=== PATIENT | male | born 1960 | race Caucasian/White ===

== ENCOUNTER → 2020-11-16 | Outpatient (CLI) | payer OTHER ==
[~2020-11-16] MED LIST: ACET325 PO; ASPI81CH; ASPI81CH PO; ATOR80 PO; CLOP75 PO; Coumadin5 MG PO; DOCU100 PO; FAMO20 PO; LISI20 PO; LOSA25 PO; METO50ER PO; NITR.4SL SL
[2020-11-16 19:03] LABS: BASOPHILS ABSOLUTE AUTO 0.05 K/mm3 (0.00-0.23); BASOPHILS PERCENT AUTO 1 % (0-2); EOSINOPHILS PERCENT AUTO 2 % (0-6); Hematocrit 47.1 % (37.0-53.0); Hemoglobin 16.2 g/dL (13.5-17.5); IMMATURE GRAN ABSOLUTE AUTO 0.05 K/mm3 (0.00-0.10); IMMATURE GRAN PERCENT AUTO 1 % (0-1); LYMPHOCYTES ABSOLUTE AUTO 2.43 K/mm3 (0.84-5.20); LYMPHOCYTES PERCENT AUTO 27 % (21-46); MONOCYTES ABSOLUTE AUTO 0.83 K/mm3 (0.16-1.47); MONOCYTES PERCENT AUTO 9 % (4-13); Mean Corpuscular HGB 33.4 pg (26.0-34.0); Mean Corpuscular HGB Conc 34.4 g/dL (31.5-36.5); Mean Corpuscular Volume 97 fL (80-100); Mean Platelet Volume 11.7 fL (9.1-12.4); NEUTROPHILS ABSOLUTE AUTO 5.62 K/mm3 (1.96-9.15); NEUTROPHILS PERCENT AUTO 61 % (41-73); Platelet Count 170 K/mm3 (150-400); RDW Coefficient Variation 12.6 % (11.7-14.2); RDW Standard Deviation 45.3 fL (35.1-46.3); Red Blood Cell Count 4.85 M/mm3 (4.30-5.90); White Blood Cell Count 9.18 K/mm3 (4.00-11.30)
[2020-11-16 19:29] LABS: International Normalized Ratio 2.24; Prothrombin Time Results 23.1 Sec (9.7-11.5)
== END | disposition home or self-care (01) ==
LOC: LAB 17:51 → LAB SHORT 17:51
PROVIDERS: Internal Medicine Hematology & Oncology
DX: Z12.5 Encounter for screening for malignant neoplasm of prostate (principal); I25.10 Atherosclerotic heart disease of native coronary artery without angina pectoris; D68.59 Other primary thrombophilia
CPT/HCPCS: 85025; 85610; G0103

== ENCOUNTER → 2021-02-27 | Outpatient (CLI) | payer OTHER ==
[2021-02-27 19:16] LABS: International Normalized Ratio 2.02; Prothrombin Time Results 20.3 Sec (9.7-11.5)
== END | disposition home or self-care (01) ==
LOC: LAB 18:10 → LAB SHORT 18:10
PROVIDERS: Internal Medicine Hematology & Oncology
DX: Z79.01 Long term (current) use of anticoagulants (principal); Z51.81 Encounter for therapeutic drug level monitoring; I25.10 Atherosclerotic heart disease of native coronary artery without angina pectoris
CPT/HCPCS: 85610

== ENCOUNTER → 2022-08-15 | Outpatient (CLI) | payer OTHER ==
[2022-08-15 13:57] LABS: International Normalized Ratio 2.47; Prothrombin Time Results 24.6 Sec (9.7-11.5)
== END ==
LOC: LAB SHORT 11:42 → LAB 11:42
PROVIDERS: Internal Medicine Hematology & Oncology
DX: Z51.81 Encounter for therapeutic drug level monitoring (principal); Z79.01 Long term (current) use of anticoagulants
CPT/HCPCS: 85610

== ENCOUNTER → 2022-11-14 | Outpatient (CLI) | payer OTHER ==
[2022-11-14 15:08] LABS: International Normalized Ratio 2.72
== END ==
LOC: LAB 13:13 → LAB SHORT 13:13
PROVIDERS: Internal Medicine Hematology & Oncology
DX: D68.59 Other primary thrombophilia (principal)
CPT/HCPCS: 85610

== ENCOUNTER 2024-11-22 10:57 | Day surgery (SDC) | payer OTHER ==
[2024-11-22] VITALS (11 sets, daily range): BP systolic 97–126; BP diastolic 58–81
[~2024-11-22] VITALS: Ht 190.5 cm; Wt 107.0 kg
[~2024-11-22 10:57] MED LIST changes: -ASPI81CH; +WARF3 PO
[2024-11-22] MEDS ORDERED: Heparin Sodium 1000 Units/ML 10ML MDV ONE (11:14)
[2024-11-22] MEDS ORDERED: Verapamil HCL 2.5 MG/ML 2ML Injection ONE (11:14)
[2024-11-22] MEDS ORDERED: Nitroglycerin 2 MG/20 ML BTL ONE (11:15)
[2024-11-22] MEDS ORDERED: NS 250 ML IV ONE (11:15)
[2024-11-22] MEDS ORDERED: NS 2,000 ML IV ONE (11:15)
[2024-11-22] MEDS ORDERED: Midazolam HCl 1MG / ML 2ML Vial ONE (12:03)
[2024-11-22] MEDS ORDERED: FentaNYL Citrate 50 MCG/ML 2 ML Injection ONE (12:03)
[2024-11-22] MEDS ORDERED: ENOX120I SC (13:14)
[2024-11-22] MEDS ORDERED: Imdur30 MG PO (13:14)
--- NOTE | 2024-11-22 13:42 | NUR ---
RECEIVED REPORT, PATIENT RESTING POST-PROCEDURE, FAMILY AT BEDSIDE, PROVIDER IN EARLIER DISCUSSED PLAN, ORDERS TO BE SENT TO OFFICE, DISCUSSED INR TO BE CHECKED IN 3 DAYS, LOVENOX DOSAGE AND HOW TO GIVE INJECTION WITH PATIENT/FAMILY, AND MEDICATIONS LIST WELL DISCHARGE INSTRUCTIONS, FOLLOW UP APPOINTMENT, RADIAL SITE CARE, AND RESUMING COUMADIN. VERBALIZED UNDERSTANDING, DENIES QUESTIONS AT PRESENT, DISCHARGE IN PROGRESS.
--- NOTE | 2024-11-22 14:15 | NUR ---
ASSUMED CARE OF PT. PT AWAKE AND CONVERSING APPROPRIATELY; DENIES CP POST PROCEDURE, VSS. R RADIAL SITE NO SWELLING/HEMATOMA, TR BAND IN PLACE; RUE POSITIVE PLEUTH, WILL START REMOVING AIR FROM TR BAND. R AC ([facility]) SITE NO SWELLING.HEMATOMA, JOSÉ MIGUEL AND TEGADERM DRSG INTACT. PT'S FAMILY AT BEDSIDE, ATTENTIVE.
--- NOTE | 2024-11-22 14:55 | NUR ---
TR BAND FULLY DEFLATED, R RADIAL SITE NO S/S OF SWELLING/HEMATOMA.
--- NOTE | 2024-11-22 15:59 | NUR ---
ASSISTED PATIENT INTO WHEELCHAIR, DRESSED, IV REMOVED EARLIER AND TR BAND REMOVED, TAKEN TO PERSONAL VEHICLE AT PRESENT TIME VIA WHEELCHAIR, LEFT WITH FAMILY. NO CONCERNS OR QUESTIONS AT D/C.
== END 2024-11-22 15:45 | disposition home or self-care (01) ==
LOC: MHTC 10:57
DX: I25.10 Atherosclerotic heart disease of native coronary artery without angina pectoris (principal); I42.2 Other hypertrophic cardiomyopathy; I47.10 Supraventricular tachycardia, unspecified; I10 Essential (primary) hypertension; I25.2 Old myocardial infarction; E78.00 Pure hypercholesterolemia, unspecified; J43.9 Emphysema, unspecified; Z87.891 Personal history of nicotine dependence; Z98.61 Coronary angioplasty status; Z86.711 Personal history of pulmonary embolism; Z79.82 Long term (current) use of aspirin; Z79.01 Long term (current) use of anticoagulants; Z79.899 Other long term (current) drug therapy; Z88.8 Allergy status to other drugs, medicaments and biological substances
CPT/HCPCS: 76937; 93460; 99152; C1769; C1887; C1894; J1644; J2250; J3010; J7030; J7050; Q9967